=== PATIENT | male | born 1965 | race Caucasian/White ===

== ENCOUNTER 2024-03-13 06:11 | Day surgery (SDC) | payer OTHER ==
[~2024-03-13] VITALS: Ht 182.9 cm; Wt 107.0 kg
[~2024-03-13 06:11] MED LIST: ALBU90OI INH; Crestor40 MG PO; IBUPROFEN200 MG PO; Lactated Ringer's 1,000 ML IV SCH; Multiple Vitam1 EAC1 PO
[2024-03-13] MEDS ORDERED: GEMF600 PO (06:41)
[2024-03-13 06:51] VITALS: BP 143/73
--- NOTE | 2024-03-13 07:00 | NUR ---
History, Chart, Medications and Allergies reviewed before start of procedure. Lungs clear T/O to Auscultation. Patient confirms NPO status and agrees with scheduled surgery. Patient states colon prep results clear. Patient States Post-Procedure ride home has been arranged.
[2024-03-13] MEDS ORDERED: propofoL 60 ML IV ONE (07:16)
--- NOTE | 2024-03-13 07:37 | NUR ---
03/13/24 0737 Gustavo Jacobs History, Chart, Medications and Allergies reviewed before start of procedure.
[2024-03-13 07:57] VITALS: BP 119/76
[2024-03-13 08:15] VITALS: BP 129/89
--- NOTE | 2024-03-13 08:17 | NUR ---
PT AWAKE AND ORIENTED, ABLE TO GET SELF UP AND DRESSED. IV D/C'D CATH INTACT, SITE CLEAR. PT DENIED WAITE OR NAUSEA T/O RECOVERY. NARCISO FLUIDS. ALL BELONINGS RETURNED TO PATIENT. RIDE HOME, TRANSFERRED VIA W/C.
== END 2024-03-13 08:27 | disposition home or self-care (01) ==
LOC: ORSCMMR 06:11 → ORD 07:30 → ORSCMMR 08:27
PROVIDERS: Internal Medicine Gastroenterology
PROC: 0DBN8ZX Excision of Sigmoid Colon, Via Natural or Artificial Opening Endoscopic, Diagnostic (ICD-10-PCS; principal; 2024-03-13 07:30)
DX: Z12.11 Encounter for screening for malignant neoplasm of colon (principal); Z86.0101 Personal history of adenomatous and serrated colon polyps; E78.00 Pure hypercholesterolemia, unspecified; G47.33 Obstructive sleep apnea (adult) (pediatric); E78.5 Hyperlipidemia, unspecified; E66.9 Obesity, unspecified; Z68.32 Body mass index [BMI] 32.0-32.9, adult; Z79.899 Other long term (current) drug therapy
CPT/HCPCS: 88305; J2704; J7120